=== PATIENT | female | born 1985 | race Caucasian/White ===

== ENCOUNTER → 2016-08-19 | Outpatient (CLI) | payer OTHER ==
--- NOTE | 2016-08-19 11:15 | US ---
Right Breast Ultrasound History: Evaluate palpable area in the periphery of the right breast in 31-year-old female. Technique: Longitudinal and transverse images were obtained utilizing a 15 MHz transducer. Color Dop pler evaluation is employed for assessment of vascularity. Findings: The palpable asymmetry in the outer right breast at the 4 o'clock position 7 cm from the ni pple was identified on physical examination. Sonographic interrogation demonstrates normal glandular elements. The palpable nature of the region is accentuated by the presence of a rib immediately benea th the area. Prominent fibroglandular elements are seen. No solid or cystic mass is identified. Impression: Benign sonographic findings, BI-RADS 2. Recommendation: Continued clinical follow up and as long as physical examination is benign mammograph ic screening is recommended at the age of 39. If the palpable area enlarges or becomes suspicious for any reason, additional evaluation or surgical consultation could be considered. Findings and follow-up recommendations were reviewed with the patient and her in detail. [facility] will send a result letter to the patient.
== END ==
LOC: FIMAGING 09:59
PROVIDERS: ATTEND Nurse Practitioner Adult Health
DX: Z12.39 Encounter for other screening for malignant neoplasm of breast (principal); N63 Unspecified lump in breast